=== PATIENT | female | born 1985 | race Caucasian/White ===

== ENCOUNTER → 2021-10-09 | Outpatient (CLI) | payer OTHER ==
[~2021-10-09] MED LIST: ALPR1 PO; AMOX500 PO; AZIT500 PO; BIRTH CONTROL PILLS; CEPH500 PO; CIPR500 PO; CYCL10 PO; Ciprodex Otic7.5 ML LEFTEAR; DIPH50 PO; Depo-Prove150 MG/11; HYDACE5 PO; IBUP600 PO; IBUP800; IBUP800 PO; LORA10ER PO; MEDR150I; MULVITMINE PO; NEOPOLHCSU OT; Norco 5-325 Ta1 EACH PO; OXYACE5T PO; PENVK250 PO; PENVK500 PO; PHENA200 PO; PROACE100 PO; RXCYCL10 PO; RXOXYACE PO; RXPROACE PO; SULF10OPSA OS; SULTRIDS PO; TRAM50 PO; Ultram50 MG PO
[2021-10-13 16:08] LABS: HPV 16 Negative (Negative); HPV 18 Negative (Negative); HPV OTHER HR TYPES Negative (Negative)
== END | disposition home or self-care (01) ==
LOC: LAB SHORT 10:23
PROVIDERS: Advanced Practice Midwife
DX: Z01.419 Encounter for gynecological examination (general) (routine) without abnormal findings (principal)
CPT/HCPCS: 87624; G0123

== ENCOUNTER → 2022-02-12 | Outpatient (CLI) | payer OTHER ==
[2022-02-13 15:12] LABS: HPV 16 Negative (Negative); HPV 18 Negative (Negative); HPV OTHER HR TYPES Negative (Negative)
== END | disposition home or self-care (01) ==
LOC: LAB SHORT 17:08 → LAB 17:08
PROVIDERS: Advanced Practice Midwife
DX: Z01.419 Encounter for gynecological examination (general) (routine) without abnormal findings (principal)
CPT/HCPCS: 87624; G0123

== ENCOUNTER 2025-05-12 | Day surgery (SDC) | payer OTHER ==
[2025-05-12] MEDS ORDERED: Lidocaine HCl 4% Cream 5 GM ONE (13:45)
== END 2025-05-12 23:00 | disposition home or self-care (01) ==
LOC: WOUND
DX: I83.013 Varicose veins of right lower extremity with ulcer of ankle (principal); L97.312 Non-pressure chronic ulcer of right ankle with fat layer exposed; I87.2 Venous insufficiency (chronic) (peripheral)
CPT/HCPCS: A6213; A9270; G0463

== ENCOUNTER 2025-05-26 06:21 | Day surgery (SDC) | payer OTHER ==
[2025-05-26] MEDS ORDERED: Lidocaine HCl 4% Cream 5 GM ONE (08:47)
== END 2025-05-26 23:00 | disposition home or self-care (01) ==
LOC: WOUND 06:21
DX: I83.013 Varicose veins of right lower extremity with ulcer of ankle (principal); L97.312 Non-pressure chronic ulcer of right ankle with fat layer exposed; I87.2 Venous insufficiency (chronic) (peripheral)
CPT/HCPCS: A6213; A9270; G0463

== ENCOUNTER 2025-06-02 04:13 | Day surgery (SDC) | payer OTHER ==
[2025-06-02] MEDS ORDERED: Lidocaine HCl 4% Cream 5 GM ONE (08:51)
== END 2025-06-02 23:00 | disposition home or self-care (01) ==
LOC: WOUND 04:13
DX: I83.013 Varicose veins of right lower extremity with ulcer of ankle (principal); L97.312 Non-pressure chronic ulcer of right ankle with fat layer exposed; I87.2 Venous insufficiency (chronic) (peripheral)
CPT/HCPCS: A9270

== ENCOUNTER 2025-06-09 02:33 | Day surgery (SDC) | payer OTHER ==
[2025-06-09] MEDS ORDERED: Lidocaine HCl 4% Cream 5 GM ONE (14:52)
== END 2025-06-09 23:00 | disposition home or self-care (01) ==
LOC: WOUND 02:33
DX: I83.013 Varicose veins of right lower extremity with ulcer of ankle (principal); L97.312 Non-pressure chronic ulcer of right ankle with fat layer exposed; I87.2 Venous insufficiency (chronic) (peripheral)
CPT/HCPCS: A9270; G0463

== ENCOUNTER 2025-06-16 02:20 | Day surgery (SDC) | payer OTHER ==
[2025-06-16] MEDS ORDERED: Lidocaine HCl 4% Cream 5 GM ONE (15:03)
== END 2025-06-16 23:00 | disposition home or self-care (01) ==
LOC: WOUND 02:20
DX: L97.312 Non-pressure chronic ulcer of right ankle with fat layer exposed (principal); I87.2 Venous insufficiency (chronic) (peripheral)
CPT/HCPCS: A9270; G0463

== ENCOUNTER 2025-06-23 02:36 | Day surgery (SDC) | payer OTHER ==
[2025-06-23] MEDS ORDERED: Lidocaine HCl 4% Cream 5 GM ONE (15:23)
== END 2025-06-23 23:00 | disposition home or self-care (01) ==
LOC: WOUND 02:36
DX: L97.312 Non-pressure chronic ulcer of right ankle with fat layer exposed (principal); I87.2 Venous insufficiency (chronic) (peripheral)
CPT/HCPCS: A9270; G0463

== ENCOUNTER 2025-07-07 02:26 | Day surgery (SDC) | payer OTHER ==
[2025-07-07] MEDS ORDERED: Lidocaine HCl 4% Cream 5 GM ONE (14:58)
== END 2025-07-07 23:00 | disposition home or self-care (01) ==
LOC: WOUND 02:26
DX: L97.312 Non-pressure chronic ulcer of right ankle with fat layer exposed (principal); I83.013 Varicose veins of right lower extremity with ulcer of ankle; I87.2 Venous insufficiency (chronic) (peripheral)
CPT/HCPCS: A6213; A9270

== ENCOUNTER 2025-07-21 00:39 | Day surgery (SDC) | payer OTHER ==
[2025-07-21] MEDS ORDERED: Lidocaine HCl 4% Cream 5 GM ONE (15:00)
== END 2025-07-21 23:00 | disposition home or self-care (01) ==
LOC: WOUND 00:39
DX: L97.312 Non-pressure chronic ulcer of right ankle with fat layer exposed (principal); I87.2 Venous insufficiency (chronic) (peripheral)
CPT/HCPCS: A6213; A9270

== ENCOUNTER 2025-07-28 03:28 | Day surgery (SDC) | payer OTHER ==
[2025-07-28] MEDS ORDERED: Lidocaine HCl 4% Cream 5 GM ONE (15:08)
== END 2025-07-28 23:00 | disposition home or self-care (01) ==
LOC: WOUND 03:28
DX: L97.312 Non-pressure chronic ulcer of right ankle with fat layer exposed (principal); I87.2 Venous insufficiency (chronic) (peripheral)
CPT/HCPCS: A9270

== ENCOUNTER 2025-08-04 00:53 | Day surgery (SDC) | payer OTHER ==
[2025-08-04] MEDS ORDERED: Lidocaine HCl 4% Cream 5 GM ONE (15:33)
== END 2025-08-04 23:00 | disposition home or self-care (01) ==
LOC: WOUND 00:53
DX: L97.312 Non-pressure chronic ulcer of right ankle with fat layer exposed (principal); I87.2 Venous insufficiency (chronic) (peripheral)
CPT/HCPCS: A6213; A9270; G0463

== ENCOUNTER 2025-08-13 00:22 | Day surgery (SDC) | payer OTHER ==
[2025-08-13] MEDS ORDERED: Lidocaine HCl 4% Cream 5 GM ONE (14:44)
== END 2025-08-13 23:00 | disposition home or self-care (01) ==
LOC: WOUND 00:22
DX: I83.013 Varicose veins of right lower extremity with ulcer of ankle (principal); L97.312 Non-pressure chronic ulcer of right ankle with fat layer exposed; I87.2 Venous insufficiency (chronic) (peripheral)
CPT/HCPCS: A9270

== ENCOUNTER 2025-08-18 10:42 | Day surgery (SDC) | payer OTHER ==
[2025-08-18] MEDS ORDERED: Lidocaine HCl 4% Cream 5 GM ONE (15:34)
== END 2025-08-18 23:00 | disposition home or self-care (01) ==
LOC: WOUND 10:42
DX: L97.312 Non-pressure chronic ulcer of right ankle with fat layer exposed (principal); I87.2 Venous insufficiency (chronic) (peripheral)
CPT/HCPCS: A9270; G0463

== ENCOUNTER 2025-09-08 00:32 | Day surgery (SDC) | payer OTHER ==
[2025-09-08] MEDS ORDERED: Lidocaine HCl 4% Cream 5 GM ONE (15:38)
== END 2025-09-08 23:32 | disposition home or self-care (01) ==
LOC: WOUND 00:32
DX: L97.319 Non-pressure chronic ulcer of right ankle with unspecified severity (principal); I83.019 Varicose veins of right lower extremity with ulcer of unspecified site; I87.2 Venous insufficiency (chronic) (peripheral); M79.604 Pain in right leg; R60.0 Localized edema; Z88.5 Allergy status to narcotic agent
CPT/HCPCS: 93971; A9270; G0463

== ENCOUNTER 2025-09-17 06:41 | Day surgery (SDC) | payer OTHER ==
[2025-09-17] MEDS ORDERED: Lidocaine HCl 4% Cream 5 GM ONE (09:53)
== END 2025-09-17 23:00 | disposition home or self-care (01) ==
LOC: WOUND 06:41
DX: L97.312 Non-pressure chronic ulcer of right ankle with fat layer exposed (principal); I87.2 Venous insufficiency (chronic) (peripheral)
CPT/HCPCS: A9270; G0463

== ENCOUNTER 2025-09-22 01:24 | Day surgery (SDC) | payer OTHER ==
[2025-09-22] MEDS ORDERED: Lidocaine HCl 4% Cream 5 GM ONE (15:27)
== END 2025-09-22 23:57 | disposition home or self-care (01) ==
LOC: WOUND 01:24
DX: L97.312 Non-pressure chronic ulcer of right ankle with fat layer exposed (principal); I83.019 Varicose veins of right lower extremity with ulcer of unspecified site; I87.2 Venous insufficiency (chronic) (peripheral)
CPT/HCPCS: A9270

== ENCOUNTER 2025-10-06 08:30 | Day surgery (SDC) | payer OTHER ==
[2025-10-06] MEDS ORDERED: Lidocaine HCl 4% Cream 5 GM ONE (15:42)
== END 2025-10-06 23:00 | disposition home or self-care (01) ==
LOC: WOUND 08:30
DX: L97.312 Non-pressure chronic ulcer of right ankle with fat layer exposed (principal); I87.2 Venous insufficiency (chronic) (peripheral)
CPT/HCPCS: A9270